=== PATIENT | male | born 1995 | race Caucasian/White ===

== ENCOUNTER 2018-08-12 12:32 | Emergency (ER) | payer SELFPAY | END 2018-08-12 13:10 | disposition left against medical advice (07) | LOC: D.ER 12:32 | DX: R00.0 Tachycardia, unspecified (principal) ==

== ENCOUNTER 2020-04-06 18:53 | Emergency (ER) | payer SELFPAY ==
[~2020-04-06] VITALS: Ht 188 cm; Wt 65.9 kg
[2020-04-06 18:57] VITALS: Ht 188 cm; Wt 65.9 kg
[2020-04-06 19:34] LABS: BASOPHILS 0.1 % (0-2); EOSINOPHILS 3.1 % (0-7); HEMATOCRIT 43.1 % (42.0-54.0); HEMOGLOBIN 14.8 g/dL (13.5-17.5); IMMATURE GRANULOCYTES 0.3 % (0-5); LYMPHOCYTES 35.8 % (15-50); MCH 31.2 pg (26.0-34.0); MCHC 34.3 g/dL (31.0-37.0); MCV 90.9 fL (80.0-100.0); MEAN PLATELET VOLUME 9.2 fL (7.4-10.4); MONOCYTES 6.6 % (2-11); NEUTROPHILS 54.1 % (40-80); PLATELET COUNT 270 10x3/uL (130-400); RBC 4.74 10x6/uL (4.20-6.10); RDW 12.1 % (11.5-14.5); WBC 7.5 10x3/uL (4.8-10.8)
[2020-04-06 19:41] LABS: CALC OSMOLALITY 281 mosm/kg (275-300); CARBON DIOXIDE 29.4 mmol/L (21.0-32.0); CHLORIDE - SERUM 102 mmol/L (98-107); CREATININE - SERUM 1.1 mg/dL (0.6-1.3); GLUCOSE 107 mg/dL (74-106); POTASSIUM - SERUM 3.7 mmol/L (3.5-5.1); SODIUM 142 mmol/L (136-145); UREA NITROGEN 9 mg/dL (7-18); eGFR NON AFRICAN AMERICAN 89 mL/min (90-120)
[2020-04-06 19:48] LABS: ALBUMIN 4.2 g/dL (3.4-5.0); ALKALINE PHOSPHATASE 65 U/L (30-120); ALT (SGPT) 14 U/L (10-68); BILIRUBIN - TOTAL 0.58 mg/dL (0.2-1.3); PROTEIN - SERUM 7.2 g/dL (6.4-8.2)
[2020-04-06] MEDS ORDERED: PREDNISONE50 MG PO (20:00)
[2020-04-06 20:25] VITALS: BP 121/67
== END 2020-04-06 20:25 | disposition home or self-care (01) ==
LOC: D.ER 18:53
PROVIDERS: Family Medicine
DX: L23.7 Allergic contact dermatitis due to plants, except food (principal); J45.909 Unspecified asthma, uncomplicated